=== PATIENT | female | born 1985 | race Caucasian/White ===

== ENCOUNTER 2017-04-13 01:01 | Emergency (ER) ==
[2017-04-13 01:04] VITALS: BP 124/81; TEMP 98.4; BMI 18.0
[2017-04-13] MEDS ORDERED: AUGMENTIN 875-125 MG TAB PO STA (01:06)
[2017-04-13] MEDS ORDERED: NORCO 7.5-325 PO STA (01:06)
--- NOTE | 2017-04-13 01:09 | ED.PDOC ---
General ED Provider: Dr. ANDRAE FRAZIER-ER Chief Complaint: Earache Stated Complaint: edwina had cold symptoms this week and now my ear hurts Time Seen by Physician: 01:05 Mode of Arrival: Walk-In Information Source: Patient, Family Exam Limitations: No limitations Primary Care Provider: NATHAN OSHEA Nursing and Triage Documentation Reviewed and Agree: Yes EENT Complaint Exam - Ear Complaint/Exam Onset/Duration: 24hrs Symptoms Are: Still present Timing: Constant Initial Severity: Mild Current Severity: Moderate Character: Reports: Sharp pain, Dull pain, Aching pain, Throbbing pain Aggravating: Reports: None Alleviating: Reports: None Associated Signs and Symptoms: Reports: Hearing loss, URI symptoms. Denies: Ear trauma, Ear swelling, Discharge, Fever, Bleeding, Sore throat, Headache, Foreign body sensation, Rash, Pain to external ear, Pain to external face Ear Surgical History: None Vesicles to External Pinna: No Vesicles to Tragus: No Tympanic Membrane: Erythema, Dullness Differential Diagnoses: Otitis Media Review of Systems - Review Of Systems Constitutional: Reports: No symptoms Eyes: Reports: No symptoms Ears, Nose, Mouth, Throat: Reports: Ear pain, Nose discharge Respiratory: Reports: No symptoms Cardiac: Reports: No symptoms GI: Reports: No symptoms : Reports: No symptoms Musculoskeletal: Reports: No symptoms Skin: Reports: No symptoms Neurological: Reports: No symptoms Endocrine: Reports: No symptoms Hematologic/Lymphatic: Reports: No symptoms All Other Systems: Reviewed and Negative Past Medical History - Past Medical History Previously Healthy: Yes Endocrine: Reports: None Cardiovascular: Reports: None Respiratory: Reports: None Hematological: Reports: None Gastrointestinal: Reports: None Genitourinary: Reports: UTI (Kidney infections) Neuro/Psych: Reports: None Musculoskeletal: Reports: None Cancer: Reports: None Last Menstrual Period: 04/13/17 - Surgical History General Surgical History: Reports: None - Family History Family History: Reports: Unknown - Social History Smoking Status: Current every day smoker, Light tobacco smoker Hx Substance Use: No Alcohol Screening: None Physical Exam - Physical Exam Appearance: Well-appearing, No pain distress, Well-nourished Pain Distress: Moderate Eyes: NORIS, EOMI, Conjunctiva clear ENT: Oropharynx normal, Rhinorrhea, Erythema (right tm erythematous and dull) Neck: Supple Respiratory: Airway patent, Breath sounds clear, Breath sounds equal, Respirations nonlabored Cardiovascular: RRR GI/: Soft, Nontender, No masses, Bowel sounds normal, No Organomegaly Musculoskeletal: Normal strength, ROM intact, No edema, No calf tenderness Skin: Warm, Dry, Normal color Neurological: Sensation intact Psychiatric: Affect appropriate, Mood appropriate Critical Care Note - Critical Care Note Total Time (mins): 0 Course - Course Orders, Labs, Meds: Orders Category Date Time Status Amoxicillin/Potassium Clav [Augmentin 875-125 mg Tab] MEDS 04/13/17 01:06 Stat 1 tab PO ONCE STA Hydrocodone Bit/Acetaminophen [[place] 7.5-325] MEDS 04/13/17 01:06 Stat 1 tab PO ONCE STA Medications Generic Name Dose Route Start Last Admin Trade Name Freq PRN Reason Stop Dose Admin Acetaminophen/Hydrocodone Bitart 1 tab 04/13/17 01:06 [place] 7.5-325 PO 04/13/17 01:07 ONCE STA Amoxicillin/Clavulanate Potassium 1 tab 04/13/17 01:06 Augmentin 875-125 Mg Tab PO 04/13/17 01:07 ONCE STA Vital Signs: Temp Pulse Resp BP Pulse Ox 04/13/17 01:01 98.4 F 74 18 124/81 100 Departure - Departure Time of Disposition: 01:09 Disposition: HOME SELF-CARE Discharge Problem: Otitis media Qualifiers: Otitis media type: unspecified Laterality: right Chronicity: unspecified Qualifier Code: (H66.91) Otitis media, unspecified, right ear Instructions: Otitis Media (ED) Condition: Good Pt referred to PMD for follow-up: Yes Additional Instructions: augmentin 875mg bid x 7days --norco 7.5mg q 4hrs prn pain #6--f/u with pcp next week to recheck ear Allergies/Adverse Reactions: Allergies No Known Allergies Allergy (Verified 04/13/17 01:05) Home Medications: Ambulatory Orders 1 [No Reported Medications] 04/13/17 Disposition Discussed With: Patient, Family
== END 2017-04-13 01:20 | disposition home or self-care (01) ==
LOC: ED 01:01
DX: H66.91 Otitis media, unspecified, right ear (principal); F17.210 Nicotine dependence, cigarettes, uncomplicated
CPT/HCPCS: 99282

== ENCOUNTER 2018-05-15 20:15 | Emergency (ER) | payer OTHER ==
[2018-05-15 20:19] VITALS: BP 111/75; TEMP 98.8; BMI 17.2
[2018-05-15] MEDS ORDERED: DEMEROL 50 MG/ML VIAL IM STA (20:33)
[2018-05-15] MEDS ORDERED: ZOFRAN 4 MG/2 ML IM STA (20:33)
[2018-05-15] MEDS ORDERED: TORADOL IM STA (20:38)
--- NOTE | 2018-05-15 20:40 | ED.PDOC ---
General ED Provider: Dr. PETE HUSTON Chief Complaint: Abdominal Pain Stated Complaint: Came for the abdominal pain, has h/o ovarian cyst, she thinks it might have ruptured, Time Seen by Physician: 20:38 Mode of Arrival: Walk-In Information Source: Patient Primary Care Provider: NATHAN OSHEA Nursing and Triage Documentation Reviewed and Agree: Yes Reviewed sepsis parameters & appropriate labs ordered?: Yes System Inflammatory Response Syndrome: Not Applicable Sepsis Protocol: For patient's 13 years and over: Temp is 96.8 and below OR 101 and greater Pulse >90 BPM Resp >20/minute Acutely Altered Mental Status Are patient's symptoms suggestive of a new infection, such as: -Pneumonia -Skin, Soft Tissue -Endocarditis -UTI -Bone, Joint Infection -Implantable Device -Acute Abdominal Infection -Wound Infection -Meningitis -Blood Stream Catheter Infection -Unknown GI Complaint Exam - Abdominal Pain Complaint/Exam Onset: Gradual Symptoms Are: Still present Timing: Constant Initial Severity: Moderate Current Severity: Severe Location of Pain: RLQ, Suprapubic Character: Reports: Dull, Aching, Throbbing Aggravating: Reports: Movement Alleviating: Reports: None Associated Signs and Symptoms: Denies: Diaphoresis, Fever, Cough, Chest pain, Dizziness, Back pain, Constipation, Blood in stool, Dysuria, Urinary frequency, Decreased urine output, Decreased appetite, Vaginal bleeding, Vaginal discharge , Nausea, Vomiting, Diarrhea, Sore throat, Decreased activity Related History: Reports: Similar episode AAA Risk Factors: Reports: None Cardiac Risk Factors: Reports: None Ectopic Risk Factors: Reports: None Ovarian Torsion Risk Factors: Reports: None Surgical Obstruction Risk Factors: Reports: None Related Surgical History: Reports: None Patient Rh Status: Unknown Abdominal Findings: Present: Abdominal distention Differential Diagnoses: UTI, Ovarian Cyst Review of Systems - Review Of Systems Constitutional: Reports: No symptoms Eyes: Reports: No symptoms Ears, Nose, Mouth, Throat: Reports: No symptoms Respiratory: Reports: No symptoms Cardiac: Reports: No symptoms GI: Reports: Abdominal pain : Reports: No symptoms Musculoskeletal: Reports: No symptoms Skin: Reports: No symptoms Neurological: Reports: No symptoms Endocrine: Reports: No symptoms Hematologic/Lymphatic: Reports: No symptoms All Other Systems: Reviewed and Negative Past Medical History - Past Medical History Previously Healthy: Yes Endocrine: Reports: None Cardiovascular: Reports: None Respiratory: Reports: None Hematological: Reports: None Gastrointestinal: Reports: None Genitourinary: Reports: UTI (Kidney infections) Neuro/Psych: Reports: None Musculoskeletal: Reports: None Cancer: Reports: None Last Menstrual Period: 05/13/18 - Surgical History General Surgical History: Reports: None - Family History Family History: Reports: Unknown - Social History Smoking Status: Current every day smoker, Light tobacco smoker Smoking Cessation Counseling Time: > 3 min - 10 min Hx Substance Use: No Alcohol Screening: None - Immunizations Tetanus Shot up to Date: No Physical Exam - Physical Exam Appearance: Ill-appearing, Thin Eyes: NORIS, EOMI, Conjunctiva clear ENT: Ears normal, Nose normal, Oropharynx normal Respiratory: Airway patent, Breath sounds clear, Breath sounds equal, Respirations nonlabored Cardiovascular: RRR, Pulses normal, No rub, No murmur GI/: Tender Musculoskeletal: Normal strength, ROM intact, No edema, No calf tenderness Skin: Warm, Dry, Normal color Neurological: Sensation intact, Motor intact, Reflexes intact, Cranial nerves intact, Alert, Oriented Psychiatric: Affect appropriate, Mood appropriate Interpretation - Radiology Interpretation Radiology Interpretation By: Radiologist Radiology Results: Negative Exam Interpreted: CT Scan Re-Evaluation - Re-Evaluation Time of Re-Evaluation: 22:22 Status: Improved Critical Care Note - Critical Care Note Total Time (mins): 30 Course - Course Hematology/Chemistry: 05/15/18 20:40 05/15/18 20:40 Orders, Labs, Meds: Lab Review 05/15/18 05/15/18 05/15/18 20:40 20:40 20:40 WBC 12.22 H RBC 4.77 Hgb 14.6 Hct 42.7 MCV 89.5 MCH 30.6 MCHC 34.2 RDW Coeff of Felicia 13.1 Plt Count 187 Immature Gran % (Auto) 0.3 Neut % (Auto) 83.9 Lymph % (Auto) 12.0 [place] % (Auto) 3.2 Eos % (Auto) 0.3 Baso % (Auto) 0.3 Immature Gran # (Auto) 0.0 Neut # (Auto) 10.2 H Lymph # (Auto) 1.5 [place] # (Auto) 0.4 Eos # (Auto) 0.0 Baso # (Auto) 0.0 Sodium 137 Potassium 3.3 L Chloride 103 Carbon Dioxide 24 Anion Gap 13.3 BUN 7 Creatinine 0.79 Estimated GFR (MDRD) 85.00 BUN/Creatinine Ratio 8.86 Glucose 112 H Calcium 9.2 Total Bilirubin 0.5 AST 11 L ALT 9 L Alkaline Phosphatase 85 Total Protein 7.2 Albumin 3.5 Globulin 3.7 Albumin/Globulin Ratio 0.95 Amylase 28 Lipase 6 L Serum , Qual Negative Urine Color Urine Clarity Urine pH Ur Specific [place] Urine Protein Urine Glucose (UA) Urine Ketones Urine Blood Urine Nitrite Urine Bilirubin Urine Urobilinogen Ur Leukocyte Esterase Urine Microscopic RBC Urine Microscopic WBC Ur Squamous Epith Cells Urine Bacteria Urine Mucus Urine Test 05/15/18 05/15/18 20:40 20:40 WBC RBC Hgb Hct MCV MCH MCHC RDW Coeff of Felicia Plt Count Immature Gran % (Auto) Neut % (Auto) Lymph % (Auto) [place] % (Auto) Eos % (Auto) Baso % (Auto) Immature Gran # (Auto) Neut # (Auto) Lymph # (Auto) [place] # (Auto) Eos # (Auto) Baso # (Auto) Sodium Potassium Chloride Carbon Dioxide Anion Gap BUN Creatinine Estimated GFR (MDRD) BUN/Creatinine Ratio Glucose Calcium Total Bilirubin AST ALT Alkaline Phosphatase Total Protein Albumin Globulin Albumin/Globulin Ratio Amylase Lipase Serum , Qual Urine Color Dark Urine Clarity Cloudy Urine pH 6.0 Ur Specific [place] >=1.030 Urine Protein 1+ Urine Glucose (UA) Negative Urine Ketones 1+ Urine Blood 1+ Urine Nitrite Negative Urine Bilirubin 2+ Urine Urobilinogen >=8.0 Ur Leukocyte Esterase Trace Urine Microscopic RBC 5-10 Urine Microscopic WBC 20-30 Ur Squamous Epith Cells 5-10 Urine Bacteria Trace Urine Mucus 1+ Urine Test Negative Orders Category Date Time Status AMYLASE Stat LAB 05/15/18 20:40 Completed CBC W/ AUTO DIFF Stat LAB 05/15/18 20:40 Completed COMPREHENSIVE METABOLIC PANEL Stat LAB 05/15/18 20:40 Completed LIPASE Stat LAB 05/15/18 20:40 Completed SERUM Stat LAB 05/15/18 20:40 Completed URINALYSIS C & S IF INDICATED Stat LAB 05/15/18 20:40 Completed URINE CULTURE Stat LAB 05/15/18 20:40 Received URINE Stat LAB 05/15/18 20:40 Completed Ketorolac Tromethamine [Toradol] MEDS 05/15/18 20:38 Discontinued 30 mg IM ONCE STA Ondansetron HCl/Pf [Zofran 4 mg/2 ml] MEDS 05/15/18 20:33 Discontinued 4 mg IM ONCE STA Potassium Chloride [K-Dur] MEDS 05/15/18 22:17 Discontinued 40 meq PO ONCE STA CT ABDOMEN/PELVIS WO CONTRAST Stat RADS 05/15/18 20:32 Completed Medications Discontinued Medications Generic Name Dose Route Start Last Admin Trade Name Freq PRN Reason Stop Dose Admin Ketorolac Tromethamine 30 mg 05/15/18 20:38 05/15/18 21:28 Toradol IM 05/15/18 20:39 30 mg ONCE STA Administration Ondansetron HCl 4 mg 05/15/18 20:33 05/15/18 21:28 Zofran 4 Mg/2 Ml IM 05/15/18 20:34 4 mg ONCE STA Administration Potassium Chloride 40 meq 05/15/18 22:17 K-Dur PO 05/15/18 22:18 ONCE STA Vital Signs: Temp Pulse Resp BP Pulse Ox 05/15/18 20:16 98.8 F 108 H 16 111/75 98 Departure - Departure Time of Disposition: 22:24 Disposition: HOME SELF-CARE Discharge Problem: Abdominal pain UTI (urinary tract infection) Qualifiers: Urinary tract infection type: acute cystitis Hematuria presence: with hematuria Qualified Code(s): N30.01 - Acute cystitis with hematuria Condition: Stable Pt referred to PMD for follow-up: Yes IPMP verified?: No Additional Instructions: Increase Hydration Probiotics Tylenol prn Prescriptions: Nitrofurantoin Macrocrystal [Macrodantin] 100 mg PO BID #14 capsule Allergies/Adverse Reactions: Allergies No Known Allergies Allergy (Verified 05/15/18 20:22) Home Medications: Ambulatory Orders Nitrofurantoin Macrocrystal [Macrodantin] 100 mg PO BID #14 capsule 05/15/18 Disposition Discussed With: Patient
--- NOTE | 2018-05-15 21:23 | CT ---
Exam: CT of the abdomen and pelvis without contrast History: The abdominal pain Technique: [address] of the abdomen and pelvis without intravascular contrast FINDINGS: The lung bases are clear. No significant liver abnormality. The adrenals, pancreas and spl een are unremarkable. The stomach and hiatus are unremarkable.The gallbladder appears normal. [place] daniel kidneys the appendix is not confidently seen owing to a intra-abdominal fat paucity. Bowel loops demonstrate normal caliber. No inflamatory change seen in the mesentery or retroperitoneum. Vascular structures appear normal by noncontrast CT. Prominent follicular ovaries right greater than left. No pelvic fat inflammation. Nondistended urin len bladder. Normal pelvic bowel loops. No acute findings of the skeleton. Impression: 1. No inflammatory process, bowel or urinary obstruction is seen. 2. Prominent follicular ovaries greater on the right.
[2018-05-15] MEDS ORDERED: K-DUR PO STA (22:17)
[2018-05-15] MEDS ORDERED: MACROBID PO STA (22:23)
== END 2018-05-15 22:44 | disposition home or self-care (01) ==
LOC: ED 20:15
DX: N30.01 Acute cystitis with hematuria (principal); R10.9 Unspecified abdominal pain; F17.210 Nicotine dependence, cigarettes, uncomplicated
CPT/HCPCS: 36415; 80053; 81001; 81025; 82150; 83690; 84703; 85025; 87086; 96372; 99283

== ENCOUNTER 2019-07-14 18:54 | Emergency (ER) | payer MEDICAID, OTHER ==
[2019-07-14 19:00] VITALS: BP 108/80; TEMP 98.2; BMI 17.6
--- NOTE | 2019-07-14 19:24 | ED.PDOC ---
General ED Provider: Dr. HA VYAS Chief Complaint: Chest Pain Stated Complaint: Patient states that she took what she thought was a norco from a friend yesterday today she started complaining of chest pain, describes it as sharp, worse with deep breathing, feels warm and tingling and goes left , and also vomited. Time Seen by Physician: 19:22 Mode of Arrival: Walk-In Information Source: Patient Primary Care Provider: NATHAN OSHEA Nursing and Triage Documentation Reviewed and Agree: Yes Does patient meet sepsis criteria?: No System Inflammatory Response Syndrome: Temp 101F or Greater, Not Applicable Sepsis Protocol: For patient's 13 years and over: Temp is 96.8 and below OR 101 and greater Pulse >90 BPM Resp >20/minute Acutely Altered Mental Status Are patient's symptoms suggestive of a new infection, such as: -Pneumonia -Skin, Soft Tissue -Endocarditis -UTI -Bone, Joint Infection -Implantable Device -Acute Abdominal Infection -Wound Infection -Meningitis -Blood Stream Catheter Infection -Unknown Review of Systems - Review Of Systems Constitutional: Reports: No symptoms Eyes: Reports: No symptoms Ears, Nose, Mouth, Throat: Reports: No symptoms Respiratory: Reports: Short of air, Other (Pain with inspiration. ) Cardiac: Reports: Chest pain GI: Reports: Nausea, Vomiting : Reports: No symptoms Musculoskeletal: Reports: No symptoms Skin: Reports: No symptoms Neurological: Reports: No symptoms Endocrine: Reports: No symptoms Hematologic/Lymphatic: Reports: No symptoms All Other Systems: Reviewed and Negative Past Medical History - Past Medical History Previously Healthy: Yes Endocrine: Reports: None Cardiovascular: Reports: None Respiratory: Reports: None Hematological: Reports: None Gastrointestinal: Reports: None Genitourinary: Reports: UTI (Kidney infections) Neuro/Psych: Reports: None Musculoskeletal: Reports: None Cancer: Reports: None Last Menstrual Period: last month - Surgical History General Surgical History: Reports: None - Family History Family History: Reports: Unknown - Social History Smoking Status: Current some day smoker Hx Substance Use: No (Marijuana) Alcohol Screening: None - Immunizations Tetanus Shot up to Date: Yes Physical Exam - Physical Exam Appearance: No pain distress, Well-nourished Eyes: NORIS, EOMI, Conjunctiva clear ENT: Ears normal, Nose normal, Oropharynx normal Neck: Supple Respiratory: Airway patent, Breath sounds clear, Breath sounds equal, Respirations nonlabored Cardiovascular: RRR, Pulses normal, No rub, No murmur GI/: Soft, Nontender, No masses, Bowel sounds normal, No Organomegaly Musculoskeletal: Normal strength, ROM intact, No edema, No calf tenderness Skin: Warm, Dry, Normal color Neurological: Sensation intact, Motor intact, Reflexes intact, Cranial nerves intact, Alert, Oriented Psychiatric: Affect appropriate, Mood appropriate Interpretation - Advertising Vice President Rate: Normal Rhythm: Sinus - EKG Interpretation Time of EKG #1: 18:58 Rate: Normal Rhythm: Sinus Ectopy: None [place]: [place] Interpretation: Biatrial Enlargement Re-Evaluation - Re-Evaluation Time of Re-Evaluation: 20:43 Status: Improved Vital Signs Stable: Yes Pain Level: feel better after Toradol Critical Care Note - Critical Care Note Total Time (mins): 0 Course - Course Hematology/Chemistry: 07/14/19 19:20 07/14/19 19:20 Orders, Labs, Meds: Lab Review 07/14/19 07/14/19 07/14/19 19:20 19:20 19:20 WBC 8.14 RBC 4.57 Hgb 14.0 Hct 40.4 MCV 88.4 MCH 30.6 MCHC 34.7 RDW Coeff of Felicia 13.3 Plt Count 202 Immature Gran % (Auto) 0.2 Neut % (Auto) 62.5 Lymph % (Auto) 28.9 [place] % (Auto) 7.5 Eos % (Auto) 0.4 Baso % (Auto) 0.5 Immature Gran # (Auto) 0.0 Neut # (Auto) 5.1 Lymph # (Auto) 2.4 [place] # (Auto) 0.6 Eos # (Auto) 0.0 Baso # (Auto) 0.0 Sodium 139.5 Potassium 3.31 L Chloride 108.5 H Carbon Dioxide 21.7 L Anion Gap 12.61 BUN 8.4 Creatinine 0.65 Estimated GFR (MDRD) 106.00 BUN/Creatinine Ratio 12.92 Glucose 81.6 Calcium 9.54 Total Bilirubin 0.57 AST 23.7 ALT 13.1 Alkaline Phosphatase 91.1 Total Creatine Kinase 68.8 Troponin I < 0.012 Total Protein 7.87 Albumin 4.81 Globulin 3.06 Albumin/Globulin Ratio 1.57 Serum , Qual Negative Urine Color Urine Clarity Urine pH Ur Specific [place] Urine Protein Urine Glucose (UA) Urine Ketones Urine Blood Urine Nitrite Urine Bilirubin Urine Urobilinogen Ur Leukocyte Esterase Urine Microscopic RBC Urine Microscopic WBC Ur Squamous Epith Cells Amorphous Sediment Urine Mucus Urine Opiates Screen Ur Oxycodone Screen Urine Methadone Screen Ur Propoxyphene Screen Ur Barbiturates Screen U Tricyclic Antidepress Ur Phencyclidine Scrn Ur Amphetamine Screen U Methamphetamines Scrn U Benzodiazepines Scrn Urine Cocaine Screen U Cannabinoids Screen 07/14/19 07/14/19 19:38 19:38 WBC RBC Hgb Hct MCV MCH MCHC RDW Coeff of Felicia Plt Count Immature Gran % (Auto) Neut % (Auto) Lymph % (Auto) [place] % (Auto) Eos % (Auto) Baso % (Auto) Immature Gran # (Auto) Neut # (Auto) Lymph # (Auto) [place] # (Auto) Eos # (Auto) Baso # (Auto) Sodium Potassium Chloride Carbon Dioxide Anion Gap BUN Creatinine Estimated GFR (MDRD) BUN/Creatinine Ratio Glucose Calcium Total Bilirubin AST ALT Alkaline Phosphatase Total Creatine Kinase Troponin I Total Protein Albumin Globulin Albumin/Globulin Ratio Serum , Qual Urine Color Yellow Urine Clarity Clear Urine pH 7.0 Ur Specific [place] 1.020 Urine Protein Negative Urine Glucose (UA) Negative Urine Ketones 3+ Urine Blood Trace-intact Urine Nitrite Negative Urine Bilirubin Negative Urine Urobilinogen 1.0 Ur Leukocyte Esterase Negative Urine Microscopic RBC 0-2 Urine Microscopic WBC 0-2 Ur Squamous Epith Cells 2-5 Amorphous [place] Trace Urine Mucus 1+ Urine Opiates Screen Negative Ur Oxycodone Screen Negative Urine Methadone Screen Negative Ur Propoxyphene Screen Negative Ur Barbiturates Screen Negative U Tricyclic Antidepress Negative Ur Phencyclidine Scrn Negative Ur Amphetamine Screen Negative U Methamphetamines Scrn Negative U Benzodiazepines Scrn Negative Urine Cocaine Screen Negative U Cannabinoids Screen Positive Orders Category Date Time Status EKG-(ED ONLY) Stat CARDIO 07/14/19 19:21 Completed ED PIPE OR STEAM FITTER FURNACE INSTALLER APPLIED .ONCE EMERGENCY 07/14/19 19:21 Active ED IV/MEDIPORT/POWERPORT .ONCE EMERGENCY 07/14/19 19:21 Active CBC W/ AUTO DIFF Stat LAB 07/14/19 19:20 Completed COMPREHENSIVE METABOLIC PANEL Stat LAB 07/14/19 19:20 Completed CREATINE KINASE Stat LAB 07/14/19 19:20 Completed HCG QUALITATIVE [SERUM ] Stat LAB 07/14/19 19:20 Completed TROPONIN I Stat LAB 07/14/19 19:20 Completed URINALYSIS C & S IF INDICATED Stat LAB 07/14/19 19:38 Completed URINE DRUG SCREEN (RAPID FOR ED) [DRUG SCREEN, URINE, LAB 07/14/19 19:38 Completed RAPID] Stat 0.9 % Sodium Chloride [Saline Flush] MEDS 07/14/19 19:21 Discontinued 1 syr IVF PRN PRN Aspirin [Aspirin Chewable] MEDS 07/14/19 19:31 Discontinued 324 mg PO ONCE STA Ketorolac Tromethamine [Toradol] MEDS 07/14/19 19:31 Discontinued 30 mg IVP ONCE STA CHEST, 1V AP ONLY Stat RADS 07/14/19 19:21 Completed Medications Discontinued Medications Generic Name Dose Route Start Last Admin Trade Name Freq PRN Reason Stop Dose Admin Aspirin 324 mg 07/14/19 19:31 07/14/19 19:43 Aspirin Chewable PO 07/14/19 19:32 324 mg ONCE STA Administration Ketorolac Tromethamine 30 mg 07/14/19 19:31 07/14/19 19:44 Toradol IVP 07/14/19 19:32 30 mg ONCE STA Administration Sodium Chloride 1 syr 07/14/19 19:21 07/14/19 19:47 Saline Flush IVF 1 syr PRN PRN Administration To flush IV Vital Signs: Temp Pulse Resp BP Pulse Ox 07/14/19 18:55 98.2 F 107 H 16 108/80 100 PRESTON Risk Score Age >/= 65: No >/= 3 CAD Risk Factors: No Known CAD (Stenosis >/= 50%): No ASA Use in Past 7 Days: No Severe Angina (>/= 2 episodes in 24 hours): No EKG ST Changes >/= 0.5mm: No Postive Cardiac Marker: No PRESTON Total Score: 0 PRESTON Risk Score: Risk Score Odds of by 30D 0 0.1 (0.1-0.2) 1 0.3 (0.2-0.3) 2 0.4 (0.3-0.5) 3 0.7 (0.6-0.9) 4 1.2 (1.0-1.5) 5 2.2 (1.9-2.6) 6 3.0 (2.5-3.6) 7 4.8 (3.8-6.1) Departure - Departure Time of Disposition: 20:12 Disposition: HOME SELF-CARE Discharge Problem: Pleurisy without effusion, Chest wall pain, Acute anxiety Instructions: Pleurisy (ED), Anxiety (ED), Chest Wall Pain (ED) Condition: Fair Pt referred to PMD for follow-up: Yes IPMP verified?: No (not given anything for pain as a prescription. ) Additional Instructions: DO NOT TAKE NON PRESCRIBED OR OTC MEDICATIONS THAT YOU DO NOT OBTAIN ON YOUR OWN. Prescriptions: Ibuprofen [Motrin] 600 mg PO Q6H PRN #30 tablet PRN Reason: Analgesia Ondansetron [Zofran Odt] 4 mg PO Q8H #12 tab.rapdis Allergies/Adverse Reactions: Allergies No Known Allergies Allergy (Verified 07/14/19 19:08) Home Medications: Ambulatory Orders Ibuprofen [Motrin] 600 mg PO Q6H PRN #30 tablet 07/14/19 Ondansetron [Zofran Odt] 4 mg PO Q8H #12 tab.rapdis 07/14/19 Transfer Form Completed: Yes Disposition Discussed With: Patient
[2019-07-14] MEDS ORDERED: ASPIRIN CHEWABLE PO STA (19:31)
[2019-07-14] MEDS ORDERED: TORADOL IVP STA (19:31)
--- NOTE | 2019-07-14 20:03 | DI ---
Exam: Single view chest x-ray. Date: 07/14/2019. Comparison: None. HISTORY: Chest pain. FINDINGS: No acute osseous abnormalities are seen. The lungs are clear. Cardiac silhouette and pul monary vasculature are normal. Impression: No acute intrathoracic findings.
== END 2019-07-14 20:50 | disposition home or self-care (01) ==
LOC: ED 18:54
DX: R09.1 Pleurisy (principal); R07.89 Other chest pain; F41.9 Anxiety disorder, unspecified; R06.02 Shortness of breath; F17.210 Nicotine dependence, cigarettes, uncomplicated
CPT/HCPCS: 36415; 80053; 80306; 81001; 82550; 84484; 84703; 85025; 93005; 93010; 96374; 99283